=== PATIENT | male | born 1955 | race Caucasian/White ===

== ENCOUNTER 2016-12-31 11:34 | Emergency (ER) | payer OTHER ==
[~2016-12-31] VITALS: Ht 179.1 cm; Wt 109.1 kg
[2016-12-31 11:37] VITALS: BP 121/81; PULSE 86; RESP 16; O2SAT 96
--- NOTE | 2016-12-31 12:32 | DRSVH ---
PROCEDURE: X-RAY RIGHT SHOULDER, MINIMUM TWO VIEWS ([id number]) INDICATIONS: fall/trauma TECHNIQUE: 3 views of the shoulder were acquired. COMPARISON: None. FINDINGS: Bones: No fractures or dislocations. No suspicious bony lesions. Visualized ribs appear intact. Soft tissues: No suspicious soft tissue calcifications. 1.7 and 0.8 cm in maximum diameter calcified loose bodies project over the right axillary pouch suspicious for intra-articular loose bodies. IMPRESSION: No fracture. No acute osseous lesion. If there are persistent symptoms or clinical suspi cion for pathology, then repeat radiographs or advanced imaging (CT, MRI or bone scan) should be cons idered for further evaluation. Dictated by: Elva Oconnor MD, PhD on 12/31/2016 at 12:30 Approved by: Elva Oconnor MD, PhD on 12/31/2016 at 12:31
--- NOTE | 2016-12-31 12:33 | DRSVH ---
PROCEDURE: X-RAY RIGHT RIBS INCLUDEING PA CHEST, MINUMUM THREE VIEWS ([id number]) INDICATIONS: fall/trauma TECHNIQUE: 4 views of the right ribs were acquired, along with a single view chest. COMPARISON: None. FINDINGS: Surgical changes and devices: None. Bones and chest wall: No fractures or dislocations. No suspicious bony lesions. Overlying soft tis sues appear unremarkable. Lungs and pleura: No pleural effusions or pneumothorax. Lungs appear clear. Mediastinum: Mediastinal contours appear normal. Heart size is normal. IMPRESSION: No displaced rib fractures identified. Dictated by: Elva Oconnor MD, PhD on 12/31/2016 at 12:31 Approved by: Elva Oconnor MD, PhD on 12/31/2016 at 12:32
--- NOTE | 2016-12-31 12:34 | ED.REPORT ---
HPI-Trauma Minor / Fall Date of Service Dec 31, 2016 ED Provider: Chava Huntley MD 61 year old male with no significant PMHx who presents to the ER with 10/10 R shoulder pain after falling approximately 8 feet from a ladder just [employer]. Pt also has pain with deep inspiration and R hip pain. He was able to walk into the ER. Pt denied headache, LOC and neck pain. Nursing Notes Stated Complaint: FALL RIGHT SIDE PAIN Chief Complaint: Multiple Trauma/Fall Nursing Notes Reviewed: Yes Allergies: Coded Allergies: No Known Allergies (Unverified , 12/31/16) General Time Seen by MD: 11:55 Chief Complaint Fall, Extremity pain Hx Obtained From: Patient, Spouse Arrived By: Walk-in Onset Occurred: Just prior to arrival Symptom Duration: Since onset Caused by: Fall from height... Location: Shoulder right Quality: Painful Severity: Current: Pain level 10 out of 10 Associated with: Denies: Fever, Loss of consciousness, Neck pain Exacerbated by: Movement Pertinent Negative: Relieved by nothing Past Medical History Past Medical History None reported Denies: Asthma, Cancer, Congestive heart failure, Coronary artery disease, Diabetes mellitus, Hypertension Past Surgical History L shoulder Vasectomy Smoking History Former Smoker Review of Systems Basic Review of Systems Allergy / Immune: No allergy Psychiatric: Normal thought content Constitutional: Denies: Fever Respiratory: Reports: Pleuritic pain, Denies: Shortness of breath Musculoskeletal: Reports: Joint pain, Denies: Neck pain Neurologic: Denies: Change LOC, Headache Complete sys rev & neg: except as marked. Physical Exam Initial Vital Signs Vital Signs (First) Date Time Temp Pulse Resp B/P Pulse Ox O2 Delivery O2 Flow Rate FiO2 12/31/16 11:37 35.9 86 16 121/81 96 Room Air Initial VS: Reviewed Head / Eyes: Atraumatic, Normocephalic, PERRL ENT: Mucous membranes moist, Conjunctiva normal, No scleral icterus Respiratory: Breath sounds normal, Clear to auscultation, No respiratory distress Cardiovascular: Regular rate & rhythm, Heart sounds normal, Intact distal pulses Abdomen / GI: Soft, Non-tender Skin: Warm, Dry, No cyanosis Neurologic: Alert, Oriented, Nonfocal Psychiatric: Mood/affect normal, Behavior normal, Normal thought content General/Constitutional: Awake, Alert Neck: Atraumatic, Supple, Full range of motion, Non-tender, No midline vertebral tend Upper Extremity / MS: Neurologic intact, Vascular intact Right Shoulder: Positive: ROM reduced TTP to upper R arm. FROM of elbow and wrist. Lower Extremity / Pelvis / MS: Atraumatic, Inspection NL, Full range of motion , Non-tender, Neurologic intact, Vascular intact Interpretation & Diagnostics X-Ray Interpretation Xray Interpretation: IMPRESSION: No fracture. No acute osseous lesion. If there are persistent symptoms or clinical suspicion for pathology, then repeat radiographs or advanced imaging (CT, MRI or bone scan) should be considered for further evaluation. Dictated by: Elva Oconnor MD, PhD on 12/31/2016 at 12:30 X-Ray Ordered: Shoulder right Interpretation / Wet Read by: Interpret - Radiologist Xray Interpretation: IMPRESSION: No displaced rib fractures identified. Dictated by: Elva Oconnor MD, PhD on 12/31/2016 at 12:31 Study Performed: R rib series Interpretation / Wet Read by: Interpret - Radiologist Re-Eval/Medical Decision Re-Evaluation/Progress : Time of Eval: 13:16 Re-Evaluation/Progress Note: Pt's pain is improved. Updated pt of imaging results. Discussed plan for discharge and follow up. All questions addressed. Counseled Regarding: Diagnosis, Need for follow-up, When/why to return to ED Discharge & Departure Impression: Primary Impression: Injury resulting from fall from height Additional Impressions: Contusion of right shoulder Encounter type: initial encounter Qualified Code: S40.011A - Contusion of right shoulder, initial encounter Contusion of rib on right side Encounter type: initial encounter Qualified Code: S20.211A - Contusion of right front wall of thorax, initial encounter Disposition: Home Discharge Condition All VS Reviewed: Yes Condition: Stable Patient Instructions: How to Use a Sling (GEN) Additional Instructions: For pain you can take Naproxen 500mg twice daily. You can also take 2 full strength Tylenol with this 4 times daily. You should expect to hurt worse for the next few days. For the first 3-4 days use ice packs. After that you can alternate heat/ice. You can also use the sling for immobilization. Follow-up and away for worsening symptoms.. Return for follow up if the pain persists. Scribe Attestation Portions of this note were transcribed by Mavis Vang. I, (Dr. Huntley) personally performed the history, physical exam and medical decision-making; I reviewed and confirmed the accuracy of the information in the transcribed note. Signed by: Mavis Vang. Vera, 12/31/2016, 1317 Chava Huntley MD Dec 31, 2016 12:34 Mavis Vang Dec 31, 2016 13:17
[2016-12-31 13:51] VITALS: BP 125/86; PULSE 93; O2SAT 97
== END 2016-12-31 13:49 | disposition home or self-care (01) ==
LOC: SED 11:34
DX: S40.011A Contusion of right shoulder, initial encounter (principal); S20.211A Contusion of right front wall of thorax, initial encounter; W11.XXXA Fall on and from ladder, initial encounter; Y92.9 Unspecified place or not applicable; Y93.89 Activity, other specified; Y99.8 Other external cause status; Z87.891 Personal history of nicotine dependence